=== PATIENT | female | born 1950 ===

== ENCOUNTER → 2019-01-06 | Outpatient (CLI) | payer MEDICARE, OTHER ==
[~2019-01-06] MED LIST: AMOX500T10 PO; CLAR-1 PO; DOCU-299 PO; ESTR1PAT TD; FAMO10VI IV; MULT-1335 PO; PANT40TA65 PO; PER PO; RANI-54 PO; SUCR1TAB85 PO; [UNRECOGNIZED DRUG - CODE] PO
[2019-01-06 10:28] LABS: PLATELET COUNT, AUTOMATED 205 K/uL (150-450)
== END ==
LOC: LAB 10:06
PROVIDERS: ATTEND Surgery
DX: K92.1 Melena (principal); R10.13 Epigastric pain
CPT/HCPCS: 36415; 82310; 82374; 82435; 82565; 82947; 84132; 84295; 84520; 85025; 86677